=== PATIENT | female | born 1995 | race Two or more races ===

== ENCOUNTER 2021-10-12 05:20 | Inpatient (IN) | payer OTHER ==
[~2021-10-12] VITALS: Ht 170.2 cm; Wt 78.0 kg
[2021-10-12] MEDS ORDERED: PRENATAL CAPLE1 EAC1 (07:09)
== END 2021-10-14 10:55 | disposition home or self-care (01) | DRG 807 ==
LOC: LDR 05:20 → SURG-SUITE 05:20
PROVIDERS: ADMIT Obstetrics & Gynecology; ATTEND Obstetrics & Gynecology
PROC: 10E0XZZ Delivery of Products of Conception, External Approach (ICD-10-PCS; principal; 2021-10-12)
PROC: 3E033VJ Introduction of Other Hormone into Peripheral Vein, Percutaneous Approach (ICD-10-PCS; 2021-10-12)
PROC: 4A1HXCZ Monitoring of Products of Conception, Cardiac Rate, External Approach (ICD-10-PCS; 2021-10-12)
DX: O80 Encounter for full-term uncomplicated delivery (principal); Z37.0 Single live birth; Z3A.39 39 weeks gestation of pregnancy; Z20.822 Contact with and (suspected) exposure to COVID-19